=== PATIENT | female | born 1955 | race Caucasian/White ===

== ENCOUNTER → 2019-04-22 | Day surgery (SDC) | payer MEDICAID ==
[~2019-04-22] MED LIST: ALBU2.5V8 IH; AMOX1TAB61 PO; BUDE90AE IH; Folic Acid PO; IV RINGERS,LACTATED 1000ML 1,000 ML IV ONE; LIDOCAINE 2% PF 5 ML VIAL. ONE; MULT1TAB90 PO; OXYC1TAB15 PO; PANT40TA77 PO; PROPOFOL 20 ML IV ONE; THIA100T22 PO
[2019-04-22 10:40] VITALS: BP 137/88
--- NOTE | 2019-04-22 11:20 | HP ---
ADMIT DATE: 04/22/2019 REFERRING PHYSICIAN: Dr. Bryson Ernst REASON FOR VISIT: History of colon cancer. HISTORY OF PRESENT ILLNESS: This is a 63-year-old female with past medical history significant for COPD, gastroesophageal reflux disease, and history of colon cancer, status post left-sided resection, who is seen for interval exam. Bowel habits have been regular without diarrhea and/or constipation. There has been no melena and/or hematochezia. Last colonoscopy was over 5 years ago. With history, she requests interval exam at this time. PAST MEDICAL HISTORY: Hypertension, colon cancer, history of tubal ligation, hysterectomy, and colon resection. ALLERGIES: None. MEDICATIONS: Include albuterol, budesonide, multivitamin, pantoprazole, and thiamine. FAMILY AND SOCIAL HISTORY: She is a smoker and drinker. REVIEW OF SYSTEMS: Per records. PHYSICAL EXAMINATION: GENERAL: Reveals a well-nourished and well-developed female who is alert and cooperative, in mild distress. VITAL SIGNS: Temperature 97.2, pulse 66, and respirations 20. HEENT: Normocephalic and atraumatic head. Pupils and extraocular muscles are not tested. Sclerae anicteric. NECK: Supple. LUNGS: With decreased breath sounds anteriorly. CARDIOVASCULAR: S1, S2 without S3, S4, or appreciable murmur. ABDOMEN: Reveals a soft abdomen and normal bowel sounds without appreciable hepatosplenomegaly. EXTREMITIES: Exam reveals no cyanosis, clubbing, or edema. IMPRESSION AND PLAN: Screening colonoscopy with history of colon cancer is warranted. Risks and benefits have been discussed with the patient who is willing to proceed. ANAHI SALINAS MD DR: RENATA/cherelle JOB#: [id number] / [id number]
== END | disposition home or self-care (01) ==
LOC: ENDOS 08:50
PROVIDERS: ATTEND Internal Medicine Gastroenterology
DX: Z12.11 Encounter for screening for malignant neoplasm of colon (principal); K64.0 First degree hemorrhoids; K57.30 Diverticulosis of large intestine without perforation or abscess without bleeding; J44.9 Chronic obstructive pulmonary disease, unspecified; K21.9 Gastro-esophageal reflux disease without esophagitis; I10 Essential (primary) hypertension; Z90.710 Acquired absence of both cervix and uterus; Z80.0 Family history of malignant neoplasm of digestive organs; Z98.51 Tubal ligation status; Z79.899 Other long term (current) drug therapy; Z85.038 Personal history of other malignant neoplasm of large intestine
CPT/HCPCS: 45378; J2001; J2704